=== PATIENT | male | born 1935 ===

== ENCOUNTER → 2024-03-06 08:02 | Outpatient (CLI) | payer MEDICARE, SELFPAY ==
--- NOTE | 2024-03-06 | DI.ECHO.S_ITS ---
[facility] : : [id number] : : [place] : : [id number] : : Phone: [phone] Echocardiogram Report + + :Name: KISHOR ESCOBAR Study Date: 03/06/2024 Height: 67 in : :[facility] ReadingLocation: Weight: 150 lb : : Gender: Male BSA: 1.8 m2 : :: 1935 Age: 89 yrs BP: 120/62 mmHg: :Reason For Study: SYNCOPE AND COLLAPSE : :Ordering Physician: GOLDEN, : :FIFI Performed By: Maureen Cuevas : :Referring: FIFI STAPLES : + + Interpretation Summary 1) Moderately increased left vetnrciular thickness (concentric) with normal size and mildly reduced systolic function (EF 45-50%). Left ventricular global longitudinal strain average is -14.0% with apical sparing pattern that can be seen in cardiac amyloidosis. 2) Normal right ventricular size with mildly reduced function. 3) There is mild to moderate mitral regurgitation. 4) The right ventricular systolic pressure is estimated to be at least 41 mmHg based on an estimated right atrial pressure of 3 mm Hg. 5) There is a trivial pericardial effusion noted. 6) No prior Echo available for comparison. Procedure: A two-dimensional transthoracic echocardiogram with color flow and Doppler was performed. The study quality was technically adequate. There is no prior echocardiogram noted for this patient. The patient was in atrial fibrillation with heart rates between 52-69 bpm during the exam. Left Ventricle: The left ventricle is normal in size. There is moderate concentric left ventricular hypertrophy. The ejection fraction is estimated to be 45-50%. Left ventricular global longitudinal strain average is -14.0%. There is mild global hypokinesis of the left ventricle. Diastolic function could not be accurately assessed due to atrial fibrillation. Right Ventricle: The right ventricle is normal size. Right ventricular systolic function is mildly reduced. Atria: The left atrium is moderately dilated. Right atrial size is normal. There is no Doppler evidence for an interatrial shunt. Mitral Valve: The mitral valve leaflets appear to open well. There is mild to moderate mitral regurgitation. Aortic Valve: The aortic valve is trileaflet. The aortic valve opens well. There is no aortic valve stenosis. There is mild aortic regurgitation. Tricuspid Valve: The tricuspid valve leaflets are thin and pliable. There is mild tricuspid regurgitation. The right ventricular systolic pressure is estimated to be at least 41 mmHg based on an estimated right atrial pressure of 3 mm Hg. Pulmonic Valve: The pulmonic valve leaflets are thin and pliable; valve motion is normal. There is mild pulmonic regurgitation. Great Vessels: The aortic root is normal size. The ascending aorta is at the upper limits of normal in size. The IVC is of normal diameter and collapses greater than 50% with a sniff. This suggests a low right atrial pressure of 3 mm Hg. Pericardium/ Pleura There is a trivial pericardial effusion noted. There is no pleural effusion. MMode/2D Measurements & Calculations LVIDd: 4.0 cm LVOT diam: 2.1 cm LVIDs: 2.6 cm Ao root diam: 3.6 cm FS: 34.5 % asc Aorta Diam: 3.8 cm EPSS: 0.25 cm Ao Arch Diam (Prox Trans): 3.6 cm IVSd: 1.4 cm LVPWd: 1.4 cm LV powers. diameter/BSA (cm/m^2): 2.2 LV sys. diameter/BSA (cm/m^2): 1.5 LA A2 area: 21.0 cm2 RA long axis: 5.9 cm LA A4 area: 20.4 cm2 RA area: 19.1 cm2 LA length (vol): 5.9 cm RA vol: 52.5 ml LA vol: 61.9 ml RA : 29.3 ml/m2 LA vol index: 34.6 ml/m2 IVC diam: 1.9 cm RVD1 (basal): 3.8 cm RVD2 (mid): 2.7 cm TAPSE: 1.4 cm Doppler Measurements & Calculations Ao V2 max: 140.3 cm/sec LVOT Max Ramesh: 92.7 cm/sec Ao V2 mean: 101.3 cm/sec LV V1 max P.4 mmHg Ao max P.9 mmHg LV V1 VTI: 19.3 cm Ao mean P.6 mmHg DIDI(I,D): 2.5 cm2 Ao V2 VTI: 28.2 cm DIDI(V,D): 2.4 cm2 sev ratio: 0.68 DIDI indexed to BSA (cm^2/m^2): 1.4 MV E max ramesh: 116.6 cm/sec TR max ramesh: 308.1 cm/sec MV A max ramesh: 1.0 cm/sec TR max P.0 mmHg MV E/A: 112.6 PA V2 max: 122.7 cm/sec Med Peak E' Ramesh: 5.6 cm/sec PA V2 mean: 79.7 cm/sec E/E' med: 21.0 PA mean P.8 mmHg Lat Peak E' Ramesh: 5.6 cm/sec PA pr(Accel): 41.3 mmHg E/E' lat: 20.8 E/e' average: 20.9 MV dec time: 0.19 sec MR ERO: 0.20 cm2 MR PISA: 2.9 cm2 SV(LVOT): 69.4 ml MR flow rate: 101.5 cm3/sec MR PISA radius: 0.67 cm Reading Physician:12:20 PM
== END ==
PROVIDERS: PCP Nurse Practitioner Family; Referring Provider Internal Medicine Cardiovascular Disease; Visit Provider Internal Medicine Cardiovascular Disease
DX: I44.7 Left bundle-branch block, unspecified (principal); R55 Syncope and collapse; I08.3 Combined rheumatic disorders of mitral, aortic and tricuspid valves
CPT/HCPCS: 93306